=== PATIENT | male | born 1990 | race Caucasian/White ===

== ENCOUNTER 2017-09-04 19:33 | Emergency (ER) | payer SELFPAY ==
[~2017-09-04] VITALS: Ht 180.3 cm; Wt 86.9 kg
[2017-09-04 19:55] VITALS: BP 140/88; PULSE 60; RESP 18; TEMP 98.2; O2SAT 99
--- NOTE | 2017-09-04 20:39 | PD ---
HPI Chief Complaint: Head Injury Time Seen by Provider: 20:33 Travel History International Travel<30 days: No Contact w/Intl Traveler<30days: No Traveled to known affect area: No History of Present Illness HPI The patient is a 27-year-old male that pushed a closet door to close it and a bar came back when he pushed in on a hitting him in the forehead. The patient' s states he lost consciousness for about 30 seconds. He does have a bifrontal headache which is throbbing and 7/10. He denies any nausea. He does not take any anticoagulants. He denies any major medical problems. He denies any focal neurologic change. Specifically, he denies any visual change or focal weakness or sensory loss. [facility] Past Medical History Medical History: Denies Significant Hx Diminished Hearing: No Immunizations Current: Yes Tetanus Vaccination: < 5 Years Influenza Vaccination: No Past Surgical History Appendectomy: Yes Social History Alcohol Use: Yes (weekends) Tobacco Use: No Substance Use: No Allergies-Medications (Allergen,Severity, Reaction): Coded Allergies: No Known Allergies (Verified Allergy, Unknown, 09/04/17) Reported Meds & Prescriptions Reported Meds & Active Scripts Active No Active Prescriptions or Reported Medications Review of Systems Except as stated in HPI: all other systems reviewed are Neg Physical Exam Narrative GENERAL: The patient is alert, oriented 3 in moderate apparent distress with his bifrontal headache. His vital signs are normal. SKIN: Focused skin assessment warm/dry. HEAD: Atraumatic. Normocephalic. EYES: Pupils equal and round. No scleral icterus. No injection or drainage. ENT: No nasal bleeding or discharge. Mucous membranes pink and moist. NECK: Trachea midline. No JVD. CARDIOVASCULAR: Regular rate and rhythm. No murmur appreciated. RESPIRATORY: No accessory muscle use. Clear to auscultation. Breath sounds equal bilaterally. GASTROINTESTINAL: Abdomen soft, non-tender, nondistended. Hepatic and splenic margins not palpable. MUSCULOSKELETAL: No obvious deformities. No clubbing. No cyanosis. No edema. NEUROLOGICAL: Awake and alert. No obvious cranial nerve deficits. Motor grossly within normal limits. Normal speech. PSYCHIATRIC: Appropriate mood and affect; insight and judgment normal. Data Data Last Documented VS Vital Signs Date Time Temp Pulse Resp B/P (MAP) Pulse Ox O2 Delivery O2 Flow Rate FiO2 09/04/17 20:08 (105) 3/8/18 19:55 98.2 [address] Brain W/O Iv Contrast(Rout) (09/04/17 20:39) [facility] Medical Decision Making Medical Screen Exam Complete: Yes Emergency Medical Condition: Yes Medical Record Reviewed: Yes Interpretation(s) The CT of the brain is negative. Differential Diagnosis Concussion, cerebral contusion, intracranial bleed, skull fracture-highly unlikely Narrative Course The patient appears to have a concussion. He will need to rest his brain, avoid computer work, video games, excessive TV watching, excessive reading and no impact sports. The patient got good relief with the Tylenol 325 mg given to him by his when he arrived here. Diagnosis Primary Impression: Concussion Additional Instructions: As we discussed, resting the brain is essential. Avoid excessive TV watching, video game playing, computer work, contact sports and reading. Follow-up with her primary care physician next week. Take plain Tylenol for pain. Med/Other Pt SpecificInfo: No Change to Meds Scripts No Active Prescriptions or Reported Meds Disposition: 01 DISCHARGE HOME Condition: Stable Lul Orellana MD Sep 04, 2017 20:39
--- NOTE | 2017-09-04 21:29 | RADRPT ---
EXAM DATE/TIME: 09/04/2017 20:54 [place] COMPARISON: No previous studies available for comparison. INDICATIONS : Trauma; hit head on door. RADIATION DOSE: 62.88 CTDIvol (mGy) MEDICAL HISTORY : None SURGICAL HISTORY : Appendectomy. ENCOUNTER: Initial ACUITY: 1 day PAIN SCALE: 5/10 LOCATION: cranial TECHNIQUE: Multiple contiguous axial images were obtained of the head. Using automated exposure control and adj ustment of the mA and/or kV according to patient size, radiation dose was kept as low as reasonably a chievable to obtain optimal diagnostic quality images. DICOM format image data is available electro nically for review and comparison. FINDINGS: CEREBRUM: The ventricles are normal for age. No evidence of midline shift, mass lesion, hemorrhage or acute in farction. No extra-axial fluid collections are seen. POSTERIOR FOSSA: The cerebellum and brainstem are intact. The 4th ventricle is midline. The cerebellopontine angle i s unremarkable. EXTRACRANIAL: The visualized portion of the orbits is intact. SKULL: The calvaria is intact. No evidence of skull fracture. CONCLUSION: 1. Negative noncontrast CT brain. Parish Mcgovern MD on September 04, 2017 at 21:27 Board Certified Radiologist. This report was verified electronically.
[2017-09-04 21:45] VITALS: BP 135/79; PULSE 54; RESP 18; O2SAT 99
== END 2017-09-04 21:54 | disposition home or self-care (01) ==
LOC: PHEFT 19:33
DX: S06.0X1A Concussion with loss of consciousness of 30 minutes or less, initial encounter (principal); W22.8XXA Striking against or struck by other objects, initial encounter
CPT/HCPCS: 70450; 99283